=== PATIENT | female | born 1945 | race Caucasian/White ===

== ENCOUNTER 2017-12-07 10:23 | Day surgery (SDC) | payer MEDICARE, OTHER, MEDICAID ==
[~2017-12-07 10:23] MED LIST: PROPOFOL 200 MG INJ
[2017-12-07] MEDS ORDERED: PROPOFOL 40 ML (12:26)
[2017-12-07] MEDS ORDERED: LIDOCAINE 2% (SDV) 5 ML INJ (12:26)
[2017-12-07] MEDS ORDERED: FENTAnyl 50 MCG/ML VIAL (13:18)
== END 2017-12-07 14:50 | disposition home or self-care (01) ==
LOC: GIL 10:23
DX: K21.9 Gastro-esophageal reflux disease without esophagitis (principal); K44.9 Diaphragmatic hernia without obstruction or gangrene; K29.70 Gastritis, unspecified, without bleeding; E11.9 Type 2 diabetes mellitus without complications; I10 Essential (primary) hypertension; Z79.84 Long term (current) use of oral hypoglycemic drugs
CPT/HCPCS: 43239; 82962; 88305; 88312